=== PATIENT | female | born 1990 | race Caucasian/White ===

== ENCOUNTER 2017-12-31 11:49 | Day surgery (SDC) | payer OTHER, SELFPAY ==
[2017-12-31 12:12] VITALS: BP 118/70; PULSE 96; RESP 18; TEMP 36.7; O2SAT 100
[2017-12-31 12:15] VITALS: BMI 21.1
--- NOTE | 2017-12-31 12:23 | PM.HP.1 ---
History of Present Illness Date Patient Seen: 12/31/17 Chief complaint: colonoscopy [id number] Narrative: 27-year-old female with no pertinent past medical history who is here for colon cancer screening. The patient has a family history of colon cancer in her father at age 45. She has no active GI issues at present. Patient History Family & Social History Social History: household members spouse,children Meds Home Medications Medication Instructions Recorded Confirmed Type No Known Home Medications 12/31/17 12/31/17 History Allergies Allergy/AdvReac Type Severity Reaction Status Date / Time copper AdvReac Mild Rash Verified 12/31/17 12:11 latex [LATEX] AdvReac Mild Rash Verified 12/31/17 12:27 Review of Systems Review of Systems All systems reviewed & are unremarkable except as noted in HPI and below Exam Vital Signs (past 8 hours): - 12/31/17 12:12 Temperature 98.0 F Pulse Rate 96 H Respiratory Rate 18 Blood Pressure 118/70 Pulse Oximetry 100 Oxygen Delivery Method Room Air Narrative Exam Narrative: General: Patient is well developed, not in apparent distress Cardiovascular: Regular rate and rhythm, no murmurs, rubs, or gallops; no evidence of edema; no palpable abdominal aortic aneurysm Gastrointestinal: Normoactive bowel sounds, soft, nontender, nondistended, no rebound tenderness, no hepatosplenomegaly, no evidence of hernia Assessment & Plan Plan: Assessment/Plan Narrative: 27-year-old female with no pertinent past medical history who has a family history of stage IV colon cancer in her father at age 45. Patient is here for a screening exam. Regarding the procedure(s), the risks and potential complications, benefits, and alternatives (including not doing the procedure) were discussed with the patient. The risks include but are not limited to bleeding, infection, perforation which may require surgical intervention, missed lesions, and adverse reactions to sedative medicines. After a question and answer period, the patient agreed to proceed with the procedure(s) and gives informed consent.
[2017-12-31] MEDS: SODIUM CHLORIDE 0.9% 1,000 ML 70 ML IV (12:26)
[2017-12-31] MEDS: MIDAZOLAM 5 MG/5 ML VIAL IV (13:42)
[2017-12-31] MEDS: fentaNYL 250 MCG/5 ML INJ IV (13:43)
--- NOTE | 2017-12-31 13:49 | PM.OP.ENDO ---
Operative Date/Time/Diagnoses Date of procedure: 12/31/17 Procedure Notes Procedure in detail: Surgeon: Horacio Sanchez MD Procedure: Colonoscopy Preoperative diagnosis: Family history of colon cancer; stage IV colon cancer cancer in patient's father at 45 Postoperative diagnosis: Grade 1 internal hemorrhoids Medications: Conscious sedation using 7 mg IV of Midazolam and 150 mcg IV of Fentanyl Preanesthesia Assessment An H and P was performed/updated and the Px?s ASA class is 1. The procedure was discussed in detail with the patient. The potential risks and complications including infection, bleeding, missed lesions, perforation, need for surgery in case of perforation, prolonged hospital stay, and were explained. A brief question and answer period was allotted and once all questions were answered, informed consent was obtained. The patient was brought back to the procedure room and placed on standard monitoring. The patient?s vital signs were monitored continuously throughout the entire procedure. Prior to starting, a timeout was performed to confirm the patient?s identity, allergies, medications, and procedure. Procedure in detail The patient was placed in left lateral decubitus position and once adequate sedation was obtained a OXANA was performed. The digital rectal examination did not reveal any palpable lesions. The tip of the colonoscope was placed in the anal canal and advanced without difficulty all the way to the cecum which was identified by the appendiceal orifice and the ileocecal valve. The terminal ileum was intubated to a distance of 5 cm from the ileocecal valve. Examination of the terminal ileum revealed no mucosal abnormality. The colonoscope was brought back to the cecum and careful examination of all brice of the colon was performed with irrigation of any residual stool. There are no mucosal abnormalities throughout the entire colon. Retroflexion was performed in the rectum with evidence of grade 1 internal hemorrhoids. The patient tolerated the procedure well and will be brought back to the recovery area to be discharged once criteria are met. The prep was judged to be good/excellent and adequate to identify polyps less than 5 mm. The withdrawal time was 8 min. The total procedure time from initial sedation was 19 min. Complications There were no complications and estimated blood loss was zero. Recommendations: Resume previous diet Repeat colonoscopy in 5 years An emergency contact number was given to the patient for any complications related to the procedure
[2017-12-31 13:52] VITALS: BP 101/63; PULSE 79; RESP 12; TEMP 36.1; O2SAT 96
--- NOTE | 2017-12-31 13:53 | PM.DS.1 ---
History of Present Illness Chief complaint: colonoscopy [id number] Narrative: 27-year-old female with no pertinent past medical history who is here for colon cancer screening. The patient has a family history of colon cancer in her father at age 45. She has no active GI issues at present. Discharge Providers Discharge provider: Horacio Sanchez MD Exam Vital Signs (past 8 hours): - 12/31/17 12:12 Temperature 98.0 F Pulse Rate 96 H Respiratory Rate 18 Blood Pressure 118/70 Pulse Oximetry 100 Oxygen Delivery Method Room Air Narrative Exam Narrative: General: Patient is well developed, not in apparent distress Cardiovascular: Regular rate and rhythm, no murmurs, rubs, or gallops; no evidence of edema; no palpable abdominal aortic aneurysm Gastrointestinal: Normoactive bowel sounds, soft, nontender, nondistended, no rebound tenderness, no hepatosplenomegaly, no evidence of hernia Discharge Plan Discharge Plan Patient Disposition: Home Discharge Med Rec/Prescriptions Prescriptions: No Action No Known Home Medications RF: 0 Discharge Orders: Discharge (Order); Ordered 12/31/17 Ordered By: Horacio Sanchez Provider Discharge Instructions Diet: Diet as Tolerated Visit Report/Discharge Packet Stand Alone Forms: Surgery Discharge Discharge Data Attending Provider: Horacio Sanchez
[2017-12-31 13:56] VITALS: BP 109/77; PULSE 95; RESP 16; O2SAT 93
[2017-12-31 14:02] VITALS: BP 104/69; PULSE 74; RESP 15; O2SAT 93
[2017-12-31 14:05] VITALS: BP 103/70; PULSE 75; RESP 15; TEMP 36.1; O2SAT 93
[2017-12-31 14:20] VITALS: BP 106/68; PULSE 80; RESP 17; TEMP 36.7; O2SAT 99
== END 2017-12-31 14:33 | disposition home or self-care (01) ==
PROVIDERS: Family Provider Family Medicine; Visit Provider Internal Medicine Gastroenterology
PROC: 0DJD8ZZ Inspection of Lower Intestinal Tract, Via Natural or Artificial Opening Endoscopic (ICD-10-PCS; CPT 45378; principal; 2017-12-31 13:00)
DX: Z12.11 Encounter for screening for malignant neoplasm of colon (principal); Z80.0 Family history of malignant neoplasm of digestive organs; K64.0 First degree hemorrhoids
CPT/HCPCS: 45378; J2250; J3010

== ENCOUNTER → 2023-05-02 10:45 | Outpatient (CLI) | payer OTHER, SELFPAY ==
--- NOTE | 2023-05-02 10:48 | DI.US.S_ITS ---
PROCEDURE: US PELVIC COMPLETE INDICATIONS: MENOMETORRHAGIA TECHNIQUE: Real-time scanning was performed of the pelvic organs, with image documentation. Additional endovaginal scanning was necessary due to incomplete visualization of the adnexal and endometrial structures by transabdominal scanning. COMPARISON: None. FINDINGS: Uterus: Uterus is anteverted and normal in size at 9.4 x 6.8 x 4.7 cm. The myometrium is homogeneous. The endometrium measures 5.1 mm combined thickness. Increased vascularity in and around the endometrium. Ovaries: The right ovary measures 4.2 x 2.5 x 1.8 cm, with a calculated ovarian volume of 10.2 cc. Thick-walled right ovarian cyst measuring 1.6 centimeters with minimal peripheral vascularity, may represent a collapsing cyst. The left ovary measures 3.6 x 3.1 x 1.3 cm, with a calculated ovarian volume of 7.6 cc. The ovaries otherwise have a normal sonographic appearance. Less than 12 follicles can be seen in each ovary. No adnexal masses are seen. Other: No pathologic free abdominal or pelvic fluid. IMPRESSION: 1. The endometrium is normal in thickness. There is increased vascularity in and around the endometrium, nonspecific. 2. Probable right ovarian collapsing cyst measuring 1.6 centimeters. The ovaries are otherwise normal in appearance. We strive to produce accurate, complete, and clear reports of imaging services. To assist us in improving patient care, this report was composed using standard report templates and voice recognition software. Therefore, it may contain abnormal punctuation, insertions and/or omissions. Occasional wrong-word or sound-alike substitutions may occur. Though we review the report and make efforts to correct it, we do recommend that the report be read carefully in proper context to recognize any text inaccuracies. Dictated by: Lucien Timmons M.D. on 05/02/2023 at 11:52 Approved by: Lucien Timmons M.D. on 05/02/2023 at 11:55
== END ==
PROVIDERS: Family Provider Family Medicine; PCP Family Medicine; Referring Provider Family Medicine; Visit Provider Family Medicine
DX: N92.1 Excessive and frequent menstruation with irregular cycle (principal); N83.201 Unspecified ovarian cyst, right side
CPT/HCPCS: 76830; 76856

== ENCOUNTER → 2024-03-08 12:03 | Outpatient (CLI) | payer OTHER, SELFPAY ==
--- NOTE | 2024-03-08 | DI.US.S_ITS ---
PROCEDURE: US OB <= 14 WEEKS FETUS INDICATIONS: AMENORRHEA,FIRST TRIMESTER BLEEDING OUTSIDE/PRIOR DATING DATA: Last menstrual period (LMP): 01/21/2024. LMP-based estimated date of delivery (RAMÓN): 10/27/2024. First dating scan (date and location): 03/08/2024. Estimated date of delivery (RAMÓN) from first dating scan: 10/25/2024. TECHNIQUE: Real-time scanning was performed of the fetus and maternal pelvic organs, with image documentation. Endovaginal scanning was also performed to better visualize the fetus and maternal ovaries. COMPARISON: [facility], , PELVIC COMPLETE, 05/02/2023, 11:01. FINDINGS: Embryo: Single live intrauterine is identified with crown-rump length measuring 0.95 cm corresponding to 7 weeks 0 days Heart rate: 123 beats per minute Maternal organs: Ovaries demonstrate a presume left corpus luteal cyst. IMPRESSION: Single live intrauterine with gestational age today of 7 weeks 0 days. Recommend followup imaging at 20-22 weeks for dates and anatomy. We strive to produce accurate, complete, and clear reports of imaging services. To assist us in improving patient care, this report was composed using standard report templates and voice recognition software. Therefore, it may contain abnormal punctuation, insertions and/or omissions. Occasional wrong-word or sound-alike substitutions may occur. Though we review the report and make efforts to correct it, we do recommend that the report be read carefully in proper context to recognize any text inaccuracies. Dictated by: Bailey Middleton M.D. on 03/09/2024 at 9:57 Approved by: Bailey Middleton M.D. on 03/09/2024 at 9:58
== END ==
PROVIDERS: Family Provider Family Medicine; PCP Family Medicine; Referring Provider Family Medicine; Visit Provider Family Medicine
DX: O20.9 Hemorrhage in early pregnancy, unspecified (principal); N91.2 Amenorrhea, unspecified; Z3A.01 Less than 8 weeks gestation of pregnancy
CPT/HCPCS: 76801; 76817

== ENCOUNTER → 2024-04-07 12:41 | Outpatient (CLI) | payer OTHER, SELFPAY ==
[2024-04-07 13:21] LABS: Appearance Urine UA CLEAR; Bilirubin Urine UA NEGATIVE (NEGATIVE); Color Urine UA YELLOW; Glucose Urine UA NEGATIVE (Negative); Ketones Urine UA NEGATIVE (NEGATIVE); Leukocyte Esterase Urine UA NEGATIVE (NEGATIVE); Nitrite Urine UA NEGATIVE (Negative); Occult Blood Urine UA NEGATIVE (Negative); Protein Urine UA NEGATIVE (Negative); Specific Gravity Urine UA >=1.030 (1.000-1.035); Urobilinogen Urine UA 0.2 E.U./dL (0.2)
[2024-04-07 13:50] LABS: Add Manual Diff / Slide Review NO; Basophils Absolute Auto 0 /uL (0-100); Basophils Percent Auto 0.3 % (0-2); Eosinophils Absolute Auto 100 /uL (0-450); Eosinophils Percent Auto 0.7 % (2-4); Hematocrit 36.6 % (36-46); Hemoglobin 12.1 g/dL (12.0-16.0); Lymphocytes Absolute Auto 1700 /uL (1100-4500); Lymphocytes Percent Auto 14.8 % (25-40); Mean Corpuscular HGB Conc 33.2 % (30-36); Mean Corpuscular Hemoglobin 29.7 PG (26-34); Mean Corpuscular Volume 89.5 fL (80-100); Monocytes Absolute Auto 700 /uL (0-900); Monocytes Percent Auto 6.4 % (3-14); Neutrophils Absolute Auto 9000 /uL (1500-7000); Neutrophils Percent Auto 77.8 % (50-75); Platelet Count 339 X10^3/uL (150-400); Red Blood Cell Count 4.09 X10^6/uL (4.0-5.2); Red Cell Distribution Width 13.6 % (11.6-14.8); White Blood Cell Count 11.6 X10^3/uL (4.5-11.0)
[2024-04-08 15:41] LABS: Hepatitis B Surface Antigen NEGATIVE s/c (NEGATIVE); Rubella Antibody IgG 16.4 IU/mL (>15)
[2024-04-08 15:54] LABS: HIV 1 & 2 Ab/Ag 4th Gen Combo NEGATIVE (NEGATIVE); Hep C Virus Ab w/Reflex Quant NEGATIVE s/c (NEGATIVE)
== END ==
PROVIDERS: Family Provider Family Medicine; PCP Family Medicine; Referring Provider Family Medicine; Visit Provider Family Medicine
DX: Z34.80 Encounter for supervision of other normal pregnancy, unspecified trimester (principal)
CPT/HCPCS: 80055; 81003; 86787; 86803; 86850; 86900; 86901; 87086; 87389

== ENCOUNTER → 2024-04-16 11:04 | Outpatient (CLI) | payer OTHER, SELFPAY ==
[2024-04-16 12:34] LABS: Natera Collection Specimen Collected
== END ==
PROVIDERS: Family Provider Family Medicine; PCP Family Medicine; Referring Provider Family Medicine; Visit Provider Family Medicine
DX: Z34.81 Encounter for supervision of other normal pregnancy, first trimester (principal)
CPT/HCPCS: 36415

== ENCOUNTER → 2024-06-04 10:46 | Outpatient (CLI) | payer OTHER, SELFPAY ==
--- NOTE | 2024-06-04 10:47 | DI.US.S_ITS ---
PROCEDURE: US OB >= 14 WEEKS FETUS INDICATIONS: anatomy US OUTSIDE/PRIOR DATING DATA: Last menstrual period (LMP): 01/21/2024 LMP-based estimated date of delivery (RAMÓN): 10/27/2024. First dating scan (date and location): 03/08/2024. Estimated date of delivery (RAMÓN) from first dating scan: 10/25/2024. TECHNIQUE: Real-time scanning was performed of the fetus, with image documentation and biometric measurements. Endovaginal scanning: No COMPARISON: [facility], , OB <= 14 WEEKS FETUS, 03/08/2024, 12:10. FINDINGS: General: A single living intrauterine gestation is present. Presentation: Transverse. Placenta: Placental position is posterior , without previa. Amniotic fluid index: 16 cm, normal range is 5-24 cm. Single deepest vertical pocket is 4.7 cm. heart rate: 160 beats per minute. Maternal cervical canal: 4.3 cm long. Normal lower limit is 2.5 cm. biometrics: Biparietal diameter: 19 weeks 4 days Head circumference: 19 weeks 1 day Abdominal circumference: 20 weeks 4 days Femur length: 18 weeks 6 days Clinically estimated gestational age: 19 weeks 2 days Composite gestational age from present scan: 19 weeks 4 days Estimated weight and percentile: 3 in 7 g; 69 percentile Anatomic survey: Neuro: Ventricles are non-dilated at less than 10 mm. Cisterna magna is normal at 3-11 mm. Cerebellum is normal in size and morphology. Nuchal skin fold: Normal at less than 6 mm between 14-21 weeks gestational age. Face: Nose and lips, facial profile are normal. Spine: No evidence for spina bifida. Heart: 4-chambered heart is present, with normal ventricular outflow tracts. Diaphragm: Diaphragm is intact. Stomach: Left-sided stomach is present. Kidneys: No hydronephrosis. Normal is less than 5 mm in 2nd trimester, less than 7 mm in 3rd trimester. Cord: 3-vessel cord has orthotopic insertion. Bladder: Normal in size. Extremities: All 4 extremities identified. IMPRESSION: 1. Single living IUP redemonstrated and interval growth is within normal limits. 2. Normal anatomic survey. We strive to produce accurate, complete, and clear reports of imaging services. To assist us in improving patient care, this report was composed using standard report templates and voice recognition software. Therefore, it may contain abnormal punctuation, insertions and/or omissions. Occasional wrong-word or sound-alike substitutions may occur. Though we review the report and make efforts to correct it, we do recommend that the report be read carefully in proper context to recognize any text inaccuracies. Dictated by: Demond ROBERTSON Interpreted: Servando Walker MD on 06/04/2024 at 12:45 Transcribed by: DANIELA on 06/04/2024 at 13:19 Approved by: Servando Walker M.D. on 06/10/2024 at 23:21
== END ==
PROVIDERS: Family Provider Family Medicine; PCP Family Medicine; Referring Provider Family Medicine; Visit Provider Family Medicine
DX: Z34.82 Encounter for supervision of other normal pregnancy, second trimester (principal); Z3A.19 19 weeks gestation of pregnancy
CPT/HCPCS: 76811

== ENCOUNTER → 2024-07-05 09:30 | Outpatient (CLI) | payer OTHER, SELFPAY ==
[2024-07-05 10:54] LABS: Add Manual Diff / Slide Review NO; Basophils Absolute Auto 0 /uL (0-100); Basophils Percent Auto 0.3 % (0-2); Eosinophils Absolute Auto 200 /uL (0-450); Eosinophils Percent Auto 1.2 % (2-4); Hematocrit 29.9 % (36-46); Hemoglobin 10.1 g/dL (12.0-16.0); Lymphocytes Absolute Auto 1200 /uL (1100-4500); Lymphocytes Percent Auto 9.9 % (25-40); Mean Corpuscular HGB Conc 33.8 % (30-36); Mean Corpuscular Volume 88.7 fL (80-100); Monocytes Absolute Auto 800 /uL (0-900); Monocytes Percent Auto 6.6 % (3-14); Neutrophils Absolute Auto 10100 /uL (1500-7000); Platelet Count 318 X10^3/uL (150-400); Red Blood Cell Count 3.37 X10^6/uL (4.0-5.2); Red Cell Distribution Width 13.5 % (11.6-14.8); White Blood Cell Count 12.3 X10^3/uL (4.5-11.0)
[2024-07-05 11:07] LABS: GTT (PREG) 1 Hour PP 50gm Dose 79 mg/dL (76-139)
== END ==
PROVIDERS: Family Provider Family Medicine; PCP Family Medicine; Referring Provider Family Medicine; Visit Provider Family Medicine
DX: Z34.80 Encounter for supervision of other normal pregnancy, unspecified trimester (principal)
CPT/HCPCS: 36415; 82950; 85025

== ENCOUNTER → 2024-09-03 09:18 | Outpatient (CLI) | payer OTHER, SELFPAY ==
--- NOTE | 2024-09-03 09:19 | DI.US.S_ITS ---
PROCEDURE: US OB LIMITED INDICATIONS: LARGE FOR DATES OUTSIDE/PRIOR DATING DATA: Last menstrual period (LMP): 01/21/24 LMP-based estimated date of delivery (RAMÓN): 10/27/24. First dating scan (date and location): 03/08/24. Estimated date of delivery (RAMÓN) from first dating scan: 10/25/24. The calculations are made using the more accurate RAMÓN of 10/25/24. TECHNIQUE: Real-time scanning was performed of the fetus, with image documentation. Endovaginal scanning: Not needed COMPARISON: None. FINDINGS: A single living intrauterine gestation is present. Presentation: Transverse head left. Placenta: Placental position is posterior, without previa. Amniotic fluid index: 16.0 cm, normal range is 5-24 cm. Single deepest vertical pocket is 4.7 cm. heart rate: 160 beats per minute. Maternal cervical canal: 4.3 cm long. Normal lower limit is 2.5 cm. Clinically estimated gestational age from this scan: 19 weeks 4 days Estimated gestational age from initial scan: 19 weeks 2 days. [place]-rump length 4.5 cm, 19 weeks 4 days BPD 16.4 cm, 19 weeks 1 day Abdominal circumference 15.3 cm, 20 weeks 4 days Femur length 2.9 cm, 18 weeks 6 days Estimated weight is currently 307 g, at the 69th percentile. Note: Suspected double nuchal cord currently identified. IMPRESSION: Appropriate interval growth, current estimated weight is at the 69th percentile, without macrosomia or polyhydramnios. Apparent double nuchal cord. Recommend limited follow-up ultrasound with attention to this finding in 2 weeks. Dictated by: Yonas Castlelanos M.D. on 09/03/2024 at 13:32 Approved by: Yonas Castellanos M.D. on 09/03/2024 at 13:38
== END ==
LOC: US 09:18
PROVIDERS: Family Provider Family Medicine; PCP Family Medicine; Referring Provider Family Medicine; Visit Provider Family Medicine
DX: Z34.82 Encounter for supervision of other normal pregnancy, second trimester (principal); Z3A.19 19 weeks gestation of pregnancy
CPT/HCPCS: 76815

== ENCOUNTER 2024-09-28 13:10 | Observation (INO) | payer OTHER, SELFPAY ==
[2024-09-28 14:43] LABS: Strep Grp B PCR NEG for Grp B Strep
[2024-09-28 16:46] LABS: Urine Volume 6
[2024-09-28 16:47] LABS: Appearance Urine UA CLOUDY; Bilirubin Urine UA NEGATIVE (NEGATIVE); Color Urine UA YELLOW; Glucose Urine UA NEGATIVE (Negative); Ketones Urine UA 3+ (NEGATIVE); Leukocyte Esterase Urine UA NEGATIVE (NEGATIVE); Nitrite Urine UA NEGATIVE (Negative); Occult Blood Urine UA NEGATIVE (Negative); Protein Urine UA NEGATIVE (Negative); Urobilinogen Urine UA 0.2 E.U./dL (0.2)
[2024-09-28 17:06] LABS: RBC Urine None Seen (0-5/HPF); WBC Urine 0-1/HPF (0-5/HPF)
[2024-09-28 17:07] LABS: Bacteria Urine Occasional (0-1); Culture Indicated Urine Cult Not Indicated; Squamous Epithelial Cell Urine 0-1 /HPF (0-5/HPF)
== END 2024-09-28 16:20 | disposition home or self-care (01) ==
PROVIDERS: Admitting Provider Family Medicine; Family Provider Family Medicine; PCP Family Medicine; Referring Provider Family Medicine; Visit Provider Obstetrics & Gynecology
DX: O60.03 Preterm labor without delivery, third trimester (principal); Z3A.35 35 weeks gestation of pregnancy
CPT/HCPCS: 59025; 59050; 81001; 87081; 87653; G0378; G0379

== ENCOUNTER 2024-10-06 18:43 | Observation (INO) | payer OTHER, SELFPAY ==
[2024-10-06 19:34] LABS: Appearance Urine UA CLEAR; Bilirubin Urine UA NEGATIVE (NEGATIVE); Color Urine UA YELLOW; Glucose Urine UA NEGATIVE (Negative); Ketones Urine UA 2+ (NEGATIVE); Leukocyte Esterase Urine UA NEGATIVE (NEGATIVE); Nitrite Urine UA NEGATIVE (Negative); Occult Blood Urine UA NEGATIVE (Negative); Protein Urine UA NEGATIVE (Negative); Urobilinogen Urine UA 0.2 E.U./dL (0.2)
[2024-10-06 19:39] LABS: pH Urine UA 5.5 (4.5-8.0)
[2024-10-06 19:40] LABS: Bacteria Urine Few (2-10); RBC Urine None Seen (0-5/HPF); Urine Volume 10mL (spun); WBC Urine None Seen (0-5/HPF)
[2024-10-06 19:41] LABS: Culture Indicated Urine Cult Not Indicated; Squamous Epithelial Cell Urine 0-1 /HPF (0-5/HPF)
[2024-10-06] MEDS: LACTATED RINGERS 1,000 ML 1000 ML IV (20:15)
--- NOTE | 2024-10-06 20:24 | P.TNLD_ITS ---
Visit Information Visit Information Date of evaluation: 10/06/24 Primary OB Provider: Sharron Valencia On-call OB Provider: Brandi Pinzon Reason for Evaluation: Yes pre-term labor Comments/Additional reasons for admission: 34yo 37w0d presents to triage with c/o regular contractions x2h. Patient seen last week in triage for same, 1cm dilated and symptoms resolved with rest/hydration. Pt states recurrent regular contractions q3-5min since approximately 1700 with associated lower back/pain pressure. course current gestation uncomplicated, h/o rapid labors (~2h) in last . +FM, denies VB/LOF, dysuria. SVE /-3 per RN exam on arrival Vital Signs Vital Signs: maternal wnl/afebrile, reviewed in [facility] Medical History (Updated 03/23/24 @ 11:38 by Brittani Rios RN) depression PCR DNA positive for HSV1 Precipitous delivery (~2015) Menstrual headache Eczema Abnormal Pap smear of cervix Surgical History (Updated 03/23/24 @ 11:03 by Brittani Rios RN) History of removal of skin mole Family History (Updated 03/23/24 @ 11:06 by Brittani Rios RN) Father Colon cancer Hypertension Mother Multiple food allergies Grandmother Diabetes mellitus Grandfather Prostate cancer Grandmother Heart disease Social History marital status: number of children: 2 household members: spouse and children lives independently: Yes caregiver/support person: Yes housing: house pets and animals: Yes (dogs, cats, rabbits, reptiles) 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) current occupational exposures/hazards: No special [place] needs: No travel history: over 6 months ago seatbelt use: always helmet use: No (counseled to do so in future) water heater temp set < 120 deg: Yes working smoke detector in home: Yes fire extinguisher in home: Yes carbon monox detector in home: Yes firearms in home: Yes firearms unloaded and locked: Yes do you feel safe at home: Yes second hand exposure: No alcohol intake: former (very occasionally when not ) substance use type: does not use during the past year weight has: remained stable well-balanced diet: about half the time daily servings fruits/ve-4 caffeine: Yes (only decaf when ) Type(s) of exercise: walking Review of Systems Review of Systems ROS: Yes All systems reviewed with the patient and are negative except as otherwise documented Exam Const General: cooperative, healthy appearing and comfortable Nutritional Appearance: average body habitus Orientation: alert, awake and oriented x3 Limitations: mental status not altered Resp Effort & Inspection: normal respiratory effort and able to speak in complete sentences Cardio Pulses: normal peripheral pulses GI Other: gravid, rhea cephalic Other: deferred Skin General: no rashes or lesions noted Neuro General: patient alert, patient awake and patient oriented x3 Extrem General: normal to inspection Psych Mental Status: mental status grossly normal Judgment: judgment good Objective Labs Labs: Laboratory Results - last 24 hr 10/06/24 19:15 Urine Color Yellow Urine Appearance Clear Urine pH 5.5 Ur Specific [place] 1.010 Urine Protein Negative Urine Glucose (UA) Negative Urine Ketones 2+ H Urine Occult Blood Negative Urine Nitrate Negative Urine Bilirubin Negative Urine Urobilinogen 0.2 Ur Leukocyte Esterase Negative Urine RBC None seen Urine WBC None seen Ur Squamous Epith Cells 0-1 /hpf Urine Bacteria Few (2-10) H Ur Culture Indicated? Cult not indicated Vol Urine Centrifuged 10ml (spun) Evaluation Evaluation Baseline heart rate: 140 Variability: Moderate (6-25) monitor accelerations: Present Monitor Decelerations: Absent Uterine Contraction Intensity: Mild Category of Tracing: Reactive Status: Category l Diagnosis, Plan/Disposition Plan/Disposition Plan: 34yo at 37w0d presents with c/o regular ctx x2h, h/o prior rapid labors R/o labor UA with possible cystitis (clean catch, few bacteria) however did not meet criterion for culture, pt declined empiric abx gentle IVF hydration (+2 ketonuria) plan interval SVE 4h in setting of h/o rapid labor, dc to home at that time with routine return precautions if unchanged
== END 2024-10-06 23:03 | disposition home or self-care (01) ==
LOC: LABOR 18:46
PROVIDERS: Admitting Provider Family Medicine; PCP Family Medicine; Referring Provider Family Medicine; Visit Provider Family Medicine
DX: O47.1 False labor at or after 37 completed weeks of gestation (principal); Z3A.37 37 weeks gestation of pregnancy
CPT/HCPCS: 36415; 59025; 59050; 81001; 96360; G0378; G0379

== ENCOUNTER 2024-10-24 02:39 | Inpatient (IN) | payer OTHER, SELFPAY ==
[2024-10-24 04:12] VITALS: BP 124/84
[2024-10-24 04:15] LABS: Add Manual Diff / Slide Review NO; Hematocrit 33.9 % (36-46); Hemoglobin 11.5 g/dL (12.0-16.0); Lymphocytes Absolute Auto 1800 /uL (1100-4500); Mean Corpuscular HGB Conc 33.8 % (30-36); Mean Corpuscular Hemoglobin 29.5 PG (26-34); Mean Corpuscular Volume 87.4 fL (80-100); Platelet Count 264 X10^3/uL (150-400)
--- NOTE | 2024-10-24 07:58 | DI.US.S_ITS ---
PROCEDURE: US OB LIMITED INDICATIONS: vaginal bleeding,r/o placental abruption, placental location OUTSIDE/PRIOR DATING DATA: Working RAMÓN is 10/27/2024 TECHNIQUE: Real-time scanning was performed of the fetus, with image documentation. COMPARISON: [facility], OB LIMITED, 09/03/2024, 9:40. FINDINGS: A single living intrauterine gestation is present. Presentation: Vertex. Placenta: Placental position is posterior, without previa. Amniotic fluid index: 12.8 cm, normal range is 5-24 cm. Single deepest vertical pocket is 4.1 cm. heart rate: 153 beats per minute. Clinically estimated gestational age: 39 weeks and 4 days No evidence of abruption identified by ultrasound. Possible nuchal cord. IMPRESSION: Vertex presentation. Placenta is posterior, without evidence of abruption. Normal ALEXA. Possible nuchal cord. Dictated by: Osbaldo Baets M.D. on 10/24/2024 at 9:04 Approved by: Osbaldo Bates M.D. on 10/24/2024 at 9:06
--- NOTE | 2024-10-24 11:16 | P.HPOB_ITS ---
OB HPI Date/Time Date of admission: 10/24/24 Date Patient Seen: 10/24/24 History of Present Condition Chief complaint: Giving RAMÓN Calculator 2 Estimated Delivery Date Method Current WG Current Estimate 10/27/24 LMP (Certain) 39w 4d Other Estimates 10/25/24 Ultrasound #1 39w 6d Estimated Gestational Age (weeks): 39+4 : 3 Para: 2 Narrative: 34-year-old at GA 39+4 weeks presenting for vaginal bleeding an possible labor. Reports leakage of fluid with blood starting at 0200 this morning. Contractions occurring every 4-5 minutes. Endorses normal movement. course notable for mild range BP 130s systolic per patient report. BP in clinic has been appropriate 110s-120s systolic on chart review. Denies recalcitrant headache, visual changes, SOB, RUQ pain, new onset edema. care: good care Dating criteria OB: LMP confirmed by 1st trimester US Ultrasounds: normal 1st trimester US and normal mid trimester US Preadmission Labs Last OB Lab Results: 2 Blood Type O Positive Today, 03:45 Antibody Screen Negative Today, 03:45 Hct, (36-46) 33.9 % L Today, 03:45 Hgb, (12.0-16.0) 11.5 g/dL L Today, 03:45 Hep Bs Antigen, (NEGATIVE) Negative s/c 04/07/24, 12: 51 Hepatitis C Antibody, (NEGATIVE) Negative s/c 4, 12:51 Rubella Antibody, (>15) 16.4 IU/mL 04/07/24, 12:51 VZV IgG Antibody, (Non Reactive) Non reactive 4, 12:51 Glucose 1 Hr 50 gm, (76-139) 79 mg/dL 07/05/24, 1 0:36 Group B Strep (PCR) Neg for grp b strep 09/28/24, 13:43 Prior (ies) Past Pregnancies Del. Date GA/Weeks Labor Lgth Wt Sex Route Outcome Anesthesia Place Delv Breastfeed Preg Comp Name 03/21/13 ~37 24 6 lb 7 oz Female vaginal live - full term none IH ~1 year none Ana M 12/16/15 38 2 6 lb 13 oz Female vaginal live - full term none IH ~1 year labor [facility] Delivery Date: 03/21/13 Last Updated by: Brittani Rios RN Dates were changed several times, EGA likely inaccurate (placenta appeared somewhat calcified at delivery) Delivery Date: 12/16/15 Last Updated by: Brittani Rios RN precipitous delivery Evaluation Evaluation Baseline heart rate: 150 Variability: Moderate (6-25) monitor accelerations: Present Monitor Decelerations: Variable Contraction Frequency (minutes): 6 Uterine Contraction Intensity: Mild Category of Tracing: Reactive Status: Category ll Dilation: 1-2 cm Effacement: 0-30% station: -4 Position of cervix: mid Consistency: firm Benítez score: 2 Non-invasive Membranes Rupture Test: positive Comments: SVE with small amount of blood on multiple exams per L&D RN. Pt declines exam by male physician. [facility] Medical History (Updated 03/23/24 @ 11:38 by Brittani Rios RN) depression PCR DNA positive for HSV1 Precipitous delivery (~2015) Menstrual headache Eczema Abnormal Pap smear of cervix Surgical History (Updated 03/23/24 @ 11:03 by Brittani Rios RN) History of removal of skin mole Family History (Updated 03/23/24 @ 11:06 by Brittani Rios RN) Father Colon cancer Hypertension Mother Multiple food allergies Grandmother Diabetes mellitus Grandfather Prostate cancer Grandmother Heart disease Social History marital status: number of children: 2 household members: spouse and children lives independently: Yes caregiver/support person: Yes housing: house pets and animals: Yes (dogs, cats, rabbits, reptiles) 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) current occupational exposures/hazards: No special irving needs: No travel history: over 6 months ago seatbelt use: always helmet use: No (counseled to do so in future) water heater temp set < 120 deg: Yes working smoke detector in home: Yes fire extinguisher in home: Yes carbon monox detector in home: Yes firearms in home: Yes firearms unloaded and locked: Yes do you feel safe at home: Yes Smoking Status: Never smoker second hand exposure: No alcohol intake: former (very occasionally when not ) substance use type: does not use during the past year weight has: remained stable well-balanced diet: about half the time daily servings fruits/ve-4 caffeine: Yes (only decaf when ) Type(s) of exercise: walking Meds Home Medications and Allergies Home Medications ?Medication ?Instructions ?Recorded ?Confirmed ?Type [id number] 400 mcg-om3 35 mg-dha 25 1 tab PO DAILY 03/2310/24/24 History mg-epa 5 mg-fish oil chewable tablet Allergies Allergy/AdvReac Type Severity Reaction Status Date / Time copper AdvReac Mild Rash Verified 10/24/24 04:10 latex (LATEX) AdvReac Mild Rash Verified 10/24/24 04:10 Review of Systems Review of Systems ROS: Yes All systems reviewed with the patient and are negative except as otherwise documented OB Exam Narrative Exam Narrative: General: Well-nourished, no distress HEENT: NC/AT, EOMI, moist mucous membranes CV: RRR, normal S1 S2, no m/g/r Resp: CTAB Abd: Gravid, soft, NTND, +BS Ext: Full ROM, no edema Skin: No rash or lesions Neuro: A&O x3, normal tone, no focal deficits Objective Imaging US OB LIMITED: Radiologist's impression: INDICATIONS: vaginal bleeding,r/o placental abruption, placental location OUTSIDE/PRIOR DATING DATA: Working RAMÓN is 10/27/2024 TECHNIQUE: Real-time scanning was performed of the fetus, with image documentation. COMPARISON: [facility], , OB LIMITED, 09/03/2024, 9:40. FINDINGS: A single living intrauterine gestation is present. Presentation: Vertex. Placenta: Placental position is posterior, without previa. Amniotic fluid index: 12.8 cm, normal range is 5-24 cm. Single deepest vertical pocket is 4.1 cm. heart rate: 153 beats per minute. Clinically estimated gestational age: 39 weeks and 4 days No evidence of abruption identified by ultrasound. Possible nuchal cord. IMPRESSION: Vertex presentation. Placenta is posterior, without evidence of abruption. Normal ALEXA. Possible nuchal cord. Dictated by: Osbaldo Bates M.D. on 10/24/2024 at 9:04 Approved by: Osbaldo Bates M.D. on 10/24/2024 at 9:06 Labs 10/24/24 03:45 Labs: Laboratory Results - last 24 hr 10/24/24 03:45 WBC 8.7 RBC 3.88 L Hgb 11.5 L Hct 33.9 L MCV 87.4 MCH 29.5 MCHC 33.8 RDW 14.0 Plt Count 264 Neut % (Auto) 69.5 Lymph % (Auto) 20.9 L [place] % (Auto) 8.0 Eos % (Auto) 1.1 L Baso % (Auto) 0.5 Neut # (Auto) 6100 Lymph # (Auto) 1800 [place] # (Auto) 700 Eos # (Auto) 100 Baso # (Auto) 0 Blood Type O Positive Antibody Screen Negative Crossmatch See Detail Assessment and Plan Assessment and Plan Assessment and Plan narrative: 34-year-old at GA 39+4 weeks presenting for ROM with vaginal bleeding. notable for mildly elevated BPs without clinical sxs of pre-eclampsia. Persistent small vaginal bleeding on multiple exams. Ultrasound demonstrates posterior placenta without evidence of abruption. Discussed risk/possibility of partial abruption which may ultimately indicate need for delivery. Recommended proceeding with cervical ripening immediately to give best opportunity for vaginal delivery. Patient initially declined and requested to wait until 12 hours ruptured to see if labor proceeds naturally. FHT currently reassuring, monitor closely with low threshold to move to operative delivery. All questions answered. -admit to L&D -cervical ripening with misoprostol q4h -GBS negative, ppx not indicated -pain control prn if desired by patient -PPH risk high, type & cross w/2 units on hold -VTE risk low, SCDs with epidural Time-Based Coding :: 40 minutes spent with patient and on the chart (including review of chart, obtaining history, exam, reviewing outside data, placing orders, documenting exam and treatment plan, and counseling patient) on 10/24/2024.
[2024-10-24] MEDS: OXYTOCIN PREMIX 30 UNIT/500 ML PLAST..BAG 250 UNIT IV (16:18)
--- NOTE | 2024-10-24 16:37 | PM.OBPRVD ---
Events: Labor Augmentation Labor & Delivery Delivery date: 10/24/24 Delivery Time: 16:13 Intrapartal Events: Bleeding Cervical ripening method: per misoprostal protocol Delivery monitor: external FHT and external uterine Route of delivery: L&D Laceration Description: None Estimated blood loss (mL): 400 Anesthesia Type: None Narrative: Patient fully dilated at 1608 and began pushing at 1609. Spontaneous vaginal delivery of a viable male infant in the LADONNA position occurred at 1613. The was suctioned and stimulated at the perineum, and gave appropriate cry with movement of all extremities. Delayed cord clamping was observed for >60 seconds. The cord was clamped and cut, and the handed to mother for skin to skin. Cord blood and segment were obtained. The placenta was delivered without difficulty using gentle cord traction and found to be intact with a 3-vessel cord and moderate clotting along one edge suspicious for partial abruption. After fundal massage the uterus was firm and bleeding stopped. The vagina and cervix were examined for lacerations, with none noted. Patient stable with rooming in, bonding skin to skin and attempting to breast feed. Placenta sent to pathology. [place] Baby 1: Infant gender: Male Presentation: vertex Position: Left Occiput Anterior Placenta delivery description: Spontaneous Cord Vessel Description: 3 Vessels score (1 min): 7 score (5 min): 9 weight: 7 lb 9.801 oz Plan for aftercare: Routine care
--- NOTE | 2024-10-24 17:03 | PATH_ITS ---
[facility] Accession Number: [id number] No. of containers..01 Tissue . 01 Material submitted: . placenta - PLACENTA . 01 Diagnosis: PLACENTA: Placenta parenchyma - Weight 571 grams. - Complete maternal surface by gross examination. - Small amount of peripheral, loosely attached hemorrhagic material with calcification and small infarct involves less than 10% of the maternal surface at gross examination. - Chorionic villus maturation is consistent with a mature placenta. - Peripherally located infarct, involves less than 10% of the parenchyma by gross examination. - Patchy deciduitis. - Possible mild, focal villitis identified. Umilical cord - 44.3 cm in length. - Peripherally inserted 1.2 cm from the nearest placental disc margin. - Three vessels present. - No funisitis identified. Membranes - Marginally inserted. - Ruptured 6.7 cm from the nearest placental disc margin. - Patchy, mild chorioamnionitis present. - Patchy, mild plasma cell infiltrate of undetermined significance. - No viral cytopathic effect identified. [facility] 10/28/2024 1252 Local . 01 Electronically signed: . Meche Beckford MD, Pathologist NPI- [id number] . 01 Gross description: . Received in formalin with two identifiers and placenta, is an ovoid roa placenta with a trimmed weight of 571 grams and measuring 17.2 x 14.9 x 3.4 cm with no accessory lobes identified. . The membranes are macias and translucent with no discoloration or thickening identified. They insert at the margin and have a point of rupture 6.7 cm from the nearest disc edge. . The cord is 44.3 cm in length by 1.1 cm in diameter with a leftward coil and an index of approximately 3 twists per 5 cm. The cord inserts peripherally 1.2 cm from the nearest disc edge. Sectioning reveals unremarkable trivascular architecture with no knots or lesions identified. . The surface is blue-rao with normal arborizing vasculature and no lesions identified. . The maternal surface is presumably complete with a small amount of peripheral, loosely attached, hemorrhagic material with no induration of the underlying parenchyma and occupying less than 10% of the maternal surface. . Sectioning reveals red, spongy parenchyma with macias, wide area of discoloration located peripherally measuring 3.5 x 1.7 x 1.7 cm, occupying less than 10% of the parenchyma. No additional lesions are identified. . Manager Drug Safety sections are submitted as follows: A1: Membrane roll and placental end of cord. A2: Membrane roll and end of cord. A3: Peripheral, loosely attached, hemorrhagic material. A4: Full-thickness parenchymal discoloration. A5-A6: Central full-thickness unremarkable sections. ([id number]) /MRV 10/26/2024 1226 Local . 01 Pathologist provided ICD-10: O43.90 . 01 CPT . 932180 Specimen Comment: A courtesy copy of this report has been sent to [facility] Performed at: [address] [address], [place], [place] [id number] MD Jose Francisco Barrios MD Phone: [phone]
[2024-10-24] MEDS: TRANEXAMIC ACID 1,000 MG in SODIUM CHLORIDE 0.9% 100 ML 600 MG IV (18:11)
[2024-10-25 06:22] LABS: Hematocrit 31.0 % (36-46); Hemoglobin 10.5 g/dL (12.0-16.0)
--- NOTE | 2024-10-25 08:38 | P.DS_ITS ---
Discharge Providers Provider Date of admission: 10/24/24 02:39 Discharge Date: 10/25/24 Primary care physician: Christy Uribe MD Consults: 10/24/24 16:38 Consult to Medical Field Representative Routine Comment: Discharge provider: Sharron Valencia MD Summary Hospital Course Date Patient Seen: 10/25/24 Time Patient Seen: 08:18 Hospital Course: 34 yo who presented at 39w4d wtih vaginal bleeding and LOF. Due to vaginal bleeding, she was admitted and given misoprostol for augmentation. FHT reassuring throughout. SHe progressed in labor and delivered a viable male infant over intact perineum at 16:13. PLacenta did show a clot which was suggestive of small placental aburption. Post she has had minimal bleeding and no sx of Pre-E. She is breastfeedng well and pain is well controlled. APGARs were 7 and 9 at one and five minutes Peripartum Data Infant Delivery Method: Natural Vaginal complications: none Status at Discharge Cognitive/behavioral status at discharge: oriented Functional status at discharge: independent ambulation Overall status at discharge: patient is back to baseline Time Spent with Patient Time attestation: Total time spent providing and/or coordinating discharge services: Time spent: Less than 30 minutes Objective Labs 10/25/24 06:10 Labs: Laboratory Results - last 24 hr 10/24/24 10/25/24 03:45 06:10 Hgb 10.5 L Hct 31.0 L Blood Type O Positive Antibody Screen Negative Crossmatch See Detail Exam Vital Signs (past 8 hours): BP- 115/73, 118/63, 115/78 P- 93, 72, 84 RR- 18, 18, 17 breaths per min temp- 98.1, 99.2, 98.3 Narrative Exam Narrative: GEN: Healthy appearing, well-developed, NAD. PSYCH: Good Judgment. AOx3. Normal memory, mood, and affect HEENT: -Head: NC/AT -Eyes: No discharge or redness CV: warm and well perfused LUNGS: breathing comfortably on RA SKIN: Warm, well perfused. No skin rashes or abnormal lesions MSK: No deformities NEURO: No focal deficits Discharge Plan Discharge Plan Patient Disposition: Home Discharge orders & Medications Prescriptions: Continued [id number] oil 400 mcg-35 mg -25 mg-5 mg tablet,chewable 1 tab PO DAILY Follow up/Referrals: Christy Uribe MD [Primary Care Provider, Family Practice] Visit Report/Discharge Packet Stand Alone Forms: Patient Portal/API, Stroke Signs & Symptoms Discharge Data Primary Care Provider: Christy Uribe
[2024-10-25] MEDS: PRENATAL VIT,CALC/IRON/FOLIC 1 TABLET 1 TAB PO (09:40)
[2024-10-25 10:54] VITALS: BP 124/84; PULSE 82; RESP 14; TEMP 36.9
== END 2024-10-25 12:00 | disposition home or self-care (01) | DRG 807 ==
PROVIDERS: Admitting Provider Family Medicine; PCP Family Medicine; Referring Provider Family Medicine; Visit Provider Family Medicine
DX: O45.93 Premature separation of placenta, unspecified, third trimester (principal); Z37.0 Single live birth; Z67.40 Type O blood, Rh positive; Z3A.39 39 weeks gestation of pregnancy
CPT/HCPCS: 36415; 59050; 59200; 59400; 59409; 76815; 84112; 85014; 85018; 85025; 86850; 86900; 86901; G0379; J2590